=== PATIENT | male | born 1945 | race Caucasian/White ===

== ENCOUNTER 2021-09-11 14:07 | Inpatient (IN) | payer OTHER ==
[2021-09-11] MEDS ORDERED: METOPROLOL TARTRATE 5 MG/5 ML VIAL IVPUSH ONE ×3 (15:21→16:12)
[2021-09-11] MEDS ORDERED: METOPROLOL TARTRATE 5 MG/5 ML VIAL ONE ×3 (15:22→15:53)
[2021-09-11 15:27] LABS: BASO % 0.5 % (0-2.0); EOS % 0.9 % (0-4.5); HEMATOCRIT 54.7 % (35.4-49); HEMOGLOBIN 18.4 GM/dL (11.7-16.9); LYMPH % 14.3 % (8-40); MCH 34.5 pg (25.7-33.7); MCHC 33.7 g/dl (32.0-35.9); MEAN CELL VOLUME 102.3 fl (80-96); MEAN PLT VOLUME 8.6 fl (7.5-11.1); MONO % 8.1 % (3.8-10.2); NEUT % 76.2 % (42.8-82.8); PLATELET COUNT 253 10^3/uL (134-434); RBC 5.35 M/mm3 (4.00-5.60); RDW 13.9 % (11.9-15.9); WHITE BLOOD COUNT 10.2 K/mm3 (4.0-10.0)
[2021-09-11 15:36] LABS: INR 1.06 (0.83-1.09); PROTHROMBIN TIME (PATIENT) 12.2 SEC (9.7-13.0)
[2021-09-11 15:39] LABS: ACTIVATED PTT 31.9 SECONDS (25.2-36.5)
[2021-09-11 15:58] LABS: BLOOD UREA NITROGEN 29.2 mg/dL (7-18); CALCIUM 10.2 mg/dL (8.5-10.1)
[2021-09-11 15:59] LABS: ALBUMIN 4.9 g/dl (3.4-5.0); MAGNESIUM 2.3 mg/dL (1.8-2.4)
[2021-09-11 16:02] LABS: CREATININE 1.8 mg/dL (0.55-1.3)
[2021-09-11 16:03] LABS: BILIRUBIN,TOTAL 0.8 mg/dL (0.2-1); TOT PROT 8.6 g/dl (6.4-8.2)
[2021-09-11] MEDS ORDERED: dilTIAZem HCL 50 MG/10 ML - 10 ML VIAL IVPUSH ONE ×3 (16:51→17:31)
[2021-09-11] MEDS ORDERED: SODIUM CHLORIDE 0.9% 500 ML INFUS.BAG IV ONE (16:52)
[2021-09-11] MEDS ORDERED: dilTIAZem HCL 125 MG/25 ML - 25 ML VIAL ONE ×2 (16:58→17:32)
[2021-09-11] MEDS ORDERED: ACETAMINOPHEN 325 MG TABLET (FP) PO PRN (18:38)
[2021-09-11] MEDS: dilTIAZem HCL 30 MG TABLET PO SCH (20:23)
[2021-09-11] MEDS: APIXABAN 5 MG TABLET PO SCH ×2 (20:24→22:00)
[2021-09-11] MEDS ORDERED: APIXABAN 5 MG TABLET ONE (20:25)
[2021-09-11] MEDS ORDERED: dilTIAZem HCL 30 MG TABLET ONE (20:25)
[2021-09-11] MEDS: MUPIROCIN 2% TOPICAL OINTMENT FOR DECOLONIZATION NS SCH (23:00)
[2021-09-12] MEDS: dilTIAZem HCL 30 MG TABLET PO SCH ×2 (00:48→06:44)
[2021-09-12] MEDS: CHLORHEXIDINE GLUCONATE 4% CLEANSER FOR DECOLONIZATION TP SCH ×2 (00:48→21:20)
[2021-09-12] MEDS ORDERED: ESMOLOL 2500 MG/250 ML 2,500,000 MCG/250 ML INFUS.BAG IVPB SCH ×2 (02:15)
[2021-09-12] MEDS ORDERED: SODIUM CHLORIDE 1,000 ML IV STA (03:31)
[2021-09-12] MEDS ORDERED: dilTIAZem HCL 50 MG/10 ML - 10 ML VIAL ONE ×2 (04:47→04:52)
[2021-09-12] MEDS: INSULIN SLIDING SCALE (NOVOLOG) 1 VIAL SQ SCH ×4 (06:44→21:20)
[2021-09-12 08:08] LABS: BASO % 0.6 % (0-2.0); EOS % 0.9 % (0-4.5); HEMATOCRIT 49.5 % (35.4-49); HEMOGLOBIN 16.4 GM/dL (11.7-16.9); LYMPH % 13.5 % (8-40); MCH 34.3 pg (25.7-33.7); MEAN CELL VOLUME 103.8 fl (80-96); MEAN PLT VOLUME 9.2 fl (7.5-11.1); MONO % 7.3 % (3.8-10.2); NEUT % 77.7 % (42.8-82.8); PLATELET COUNT 226 10^3/uL (134-434); RBC 4.77 M/mm3 (4.00-5.60); RDW 13.6 % (11.9-15.9); WHITE BLOOD COUNT 12.4 K/mm3 (4.0-10.0)
[2021-09-12] MEDS ORDERED: AMIODARONE HCL INJECTION 150 MG in DEXTROSE 5%-WATER - 100 ML IVPB ONE (08:25)
[2021-09-12 08:38] LABS: CALCIUM 8.9 mg/dL (8.5-10.1)
[2021-09-12 08:39] LABS: BLOOD UREA NITROGEN 25.6 mg/dL (7-18)
[2021-09-12 08:42] LABS: CREATININE 1.5 mg/dL (0.55-1.3); PHOSPHOROUS 2.7 mg/dL (2.5-4.9)
[2021-09-12 08:43] LABS: BILIRUBIN,TOTAL 0.9 mg/dL (0.2-1)
[2021-09-12 08:45] LABS: ALBUMIN 3.7 g/dl (3.4-5.0)
[2021-09-12] MEDS ORDERED: AMIODARONE IN DEXTROSE,ISO-OSM 150 MG/100 ML BAG IVPB ONE (08:45)
[2021-09-12] MEDS ORDERED: AMIODARONE IN DEXTROSE,ISO-OSM 360 MG/200 ML BAG IV SCH ×2 (08:45→14:45)
[2021-09-12] MEDS: ASPIRIN 81 MG CHEWABLE TABLETS PO SCH (09:24)
[2021-09-12] MEDS: APIXABAN 5 MG TABLET PO SCH ×2 (09:24→21:19)
[2021-09-12] MEDS: MUPIROCIN 2% TOPICAL OINTMENT FOR DECOLONIZATION NS SCH ×2 (09:27→21:19)
[2021-09-12 10:07] LABS: EPI CELLS 3 /uL (0-25.1); HYALINE CASTS 0 /uL (0-3.1); URINE APPEARANCE CLEAR; URINE BACTERIA 6 /uL (0-1359); URINE BILIRUBIN NEGATIVE (NEGATIVE); URINE COLOR YELLOW; URINE GLUCOSE (UA) NEGATIVE (NEGATIVE); URINE KETONE 1+ (NEGATIVE); URINE LEUK ESTERASE NEGATIVE (NEGATIVE); URINE NITRITE NEGATIVE (NEGATIVE); URINE PROTEIN 1+ (NEGATIVE); URINE RBC 3 /uL (0-23.9); URINE UROBILINOGEN 0.2 mg/dL (0.2-1.0); URINE WBC 2 /uL (0-25.8)
[2021-09-12] MEDS ORDERED: METOPROLOL TARTRATE 5 MG/5 ML VIAL IVPUSH PRN ×6 (12:55→21:20)
[2021-09-12] MEDS ORDERED: metoPROLOL SUCCINATE 25 MG TAB.SR.24H (FP) PO SCH ×2 (13:00→13:15)
[2021-09-12] MEDS: dilTIAZem HCL 60 MG TABLET PO SCH ×3 (13:34→23:31)
[2021-09-12] MEDS ORDERED: METOPROLOL TARTRATE 5 MG/5 ML VIAL IVPUSH ONE (15:23)
[2021-09-12] MEDS ORDERED: dilTIAZem HCL 30 MG TABLET PO SCH ×2 (18:50)
[2021-09-12] MEDS: ATORVASTATIN CA 10 MG TABLET (FP) PO SCH (21:19)
[2021-09-13] MEDS: dilTIAZem HCL 60 MG TABLET PO SCH (06:14)
[2021-09-13] MEDS: INSULIN SLIDING SCALE (NOVOLOG) 1 VIAL SQ SCH ×4 (06:14→21:46)
[2021-09-13 06:54] LABS: BASO % 0.7 % (0-2.0); EOS % 1.1 % (0-4.5); HEMOGLOBIN 15.9 GM/dL (11.7-16.9); LYMPH % 18.4 % (8-40); MCH 34.1 pg (25.7-33.7); MEAN CELL VOLUME 103.3 fl (80-96); MEAN PLT VOLUME 8.9 fl (7.5-11.1); MONO % 8.1 % (3.8-10.2); NEUT % 71.7 % (42.8-82.8); PLATELET COUNT 185 10^3/uL (134-434); RBC 4.65 M/mm3 (4.00-5.60); RDW 13.7 % (11.9-15.9); WHITE BLOOD COUNT 10.9 K/mm3 (4.0-10.0)
[2021-09-13 07:51] LABS: CALCIUM 8.6 mg/dL (8.5-10.1)
[2021-09-13 07:52] LABS: ALBUMIN 3.6 g/dl (3.4-5.0); BLOOD UREA NITROGEN 27.1 mg/dL (7-18); MAGNESIUM 2.2 mg/dL (1.8-2.4)
[2021-09-13 07:55] LABS: CREATININE 1.3 mg/dL (0.55-1.3); PHOSPHOROUS 2.8 mg/dL (2.5-4.9)
[2021-09-13 07:56] LABS: TOT PROT 6.8 g/dl (6.4-8.2)
[2021-09-13 07:57] LABS: BILIRUBIN,TOTAL 0.8 mg/dL (0.2-1)
[2021-09-13] MEDS: APIXABAN 5 MG TABLET PO SCH ×2 (09:13→21:42)
[2021-09-13] MEDS: ASPIRIN 81 MG CHEWABLE TABLETS PO SCH (09:13)
[2021-09-13] MEDS: MUPIROCIN 2% TOPICAL OINTMENT FOR DECOLONIZATION NS SCH ×2 (09:14→21:41)
[2021-09-13] MEDS ORDERED: dilTIAZem HCL 125 MG/25 ML - 25 ML VIAL ONE (11:05)
[2021-09-13] MEDS ORDERED: dilTIAZem HCL 50 MG/10 ML - 10 ML VIAL IVPUSH ONE ×2 (11:25→11:27)
[2021-09-13 13:20] VITALS: BMI 32.7
[2021-09-13] MEDS ORDERED: DIGOXIN 0.5 MG/2 ML AMPUL IVPUSH ONE (20:38)
[2021-09-13] MEDS: CHLORHEXIDINE GLUCONATE 4% CLEANSER FOR DECOLONIZATION TP SCH (21:42)
[2021-09-13] MEDS: ATORVASTATIN CA 10 MG TABLET (FP) PO SCH (21:42)
[2021-09-14] MEDS: INSULIN SLIDING SCALE (NOVOLOG) 1 VIAL SQ SCH ×4 (06:14→21:04)
[2021-09-14 08:14] LABS: BASO % 0.5 % (0-2.0); EOS % 1.1 % (0-4.5); HEMATOCRIT 52.4 % (35.4-49); HEMOGLOBIN 17.5 GM/dL (11.7-16.9); LYMPH % 17.9 % (8-40); MCH 34.3 pg (25.7-33.7); MCHC 33.4 g/dl (32.0-35.9); MEAN CELL VOLUME 102.7 fl (80-96); MEAN PLT VOLUME 8.9 fl (7.5-11.1); NEUT % 74.5 % (42.8-82.8); PLATELET COUNT 238 10^3/uL (134-434); WHITE BLOOD COUNT 12.4 K/mm3 (4.0-10.0)
[2021-09-14 08:27] LABS: ALBUMIN 3.7 g/dl (3.4-5.0); BLOOD UREA NITROGEN 27.6 mg/dL (7-18); MAGNESIUM 2.1 mg/dL (1.8-2.4)
[2021-09-14 08:30] LABS: CREATININE 1.5 mg/dL (0.55-1.3); PHOSPHOROUS 3.1 mg/dL (2.5-4.9)
[2021-09-14] MEDS: ASPIRIN 81 MG CHEWABLE TABLETS PO SCH (09:43)
[2021-09-14] MEDS: APIXABAN 5 MG TABLET PO SCH ×2 (09:43→21:03)
[2021-09-14] MEDS: MUPIROCIN 2% TOPICAL OINTMENT FOR DECOLONIZATION NS SCH ×2 (09:44→21:03)
[2021-09-14] MEDS: ATORVASTATIN CA 10 MG TABLET (FP) PO SCH (21:03)
[2021-09-14] MEDS: CHLORHEXIDINE GLUCONATE 4% CLEANSER FOR DECOLONIZATION TP SCH (21:04)
[2021-09-15] MEDS: INSULIN SLIDING SCALE (NOVOLOG) 1 VIAL SQ SCH ×3 (06:22→21:47)
[2021-09-15 07:01] LABS: HEMATOCRIT 54.1 % (35.4-49); HEMOGLOBIN 18.1 GM/dL (11.7-16.9); MCH 34.1 pg (25.7-33.7); MCHC 33.5 g/dl (32.0-35.9); MEAN CELL VOLUME 101.8 fl (80-96); MEAN PLT VOLUME 8.7 fl (7.5-11.1); PLATELET COUNT 243 10^3/uL (134-434); RBC 5.31 M/mm3 (4.00-5.60); RDW 13.7 % (11.9-15.9)
[2021-09-15 07:22] LABS: BLOOD UREA NITROGEN 21.2 mg/dL (7-18)
[2021-09-15 07:24] LABS: INR 1.38 (0.83-1.09); PROTHROMBIN TIME (PATIENT) 15.9 SEC (9.7-13.0)
[2021-09-15 07:25] LABS: CREATININE 1.3 mg/dL (0.55-1.3); PHOSPHOROUS 2.7 mg/dL (2.5-4.9)
[2021-09-15] MEDS: ASPIRIN 81 MG CHEWABLE TABLETS PO SCH (09:59)
[2021-09-15] MEDS: MUPIROCIN 2% TOPICAL OINTMENT FOR DECOLONIZATION NS SCH ×2 (10:00→21:47)
[2021-09-15] MEDS: APIXABAN 5 MG TABLET PO SCH ×2 (10:00→21:47)
[2021-09-15] MEDS ORDERED: LIDOCAINE VISCOUS 2% ORAL/TOP 15 ML UNIT-DOSE CUP ONE (15:39)
[2021-09-15] MEDS ORDERED: LIDOCAINE VISCOUS 2% ORAL/TOP 15 ML UNIT-DOSE CUP PO ONE ×2 (15:40→15:55)
[2021-09-15] MEDS ORDERED: LISINOPRIL 20 MG TABLET PO ONE (18:20)
[2021-09-15] MEDS: QUINAPRIL HCL 20 MG TABLET PO SCH (20:00)
[2021-09-15] MEDS: ATORVASTATIN CA 10 MG TABLET (FP) PO SCH (21:47)
[2021-09-15] MEDS: CHLORHEXIDINE GLUCONATE 4% CLEANSER FOR DECOLONIZATION TP SCH (21:48)
[2021-09-16] MEDS: QUINAPRIL HCL 20 MG TABLET PO SCH ×2 (00:54→10:22)
[2021-09-16] MEDS: INSULIN SLIDING SCALE (NOVOLOG) 1 VIAL SQ SCH ×4 (06:29→21:34)
[2021-09-16 07:56] LABS: BASO % 0.7 % (0-2.0); EOS % 1.1 % (0-4.5); HEMATOCRIT 47.5 % (35.4-49); HEMOGLOBIN 15.9 GM/dL (11.7-16.9); LYMPH % 18.2 % (8-40); MCH 34.2 pg (25.7-33.7); MCHC 33.4 g/dl (32.0-35.9); MEAN CELL VOLUME 102.3 fl (80-96); MEAN PLT VOLUME 9.3 fl (7.5-11.1); MONO % 6.6 % (3.8-10.2); NEUT % 73.4 % (42.8-82.8); PLATELET COUNT 221 10^3/uL (134-434); RBC 4.64 M/mm3 (4.00-5.60); RDW 13.2 % (11.9-15.9)
[2021-09-16 08:19] LABS: ALBUMIN 3.4 g/dl (3.4-5.0); BLOOD UREA NITROGEN 24.2 mg/dL (7-18); CALCIUM 8.6 mg/dL (8.5-10.1)
[2021-09-16 08:23] LABS: CREATININE 1.3 mg/dL (0.55-1.3); PHOSPHOROUS 3.2 mg/dL (2.5-4.9)
[2021-09-16 08:24] LABS: BILIRUBIN,TOTAL 1.2 mg/dL (0.2-1)
[2021-09-16 08:25] LABS: TOT PROT 6.5 g/dl (6.4-8.2)
[2021-09-16] MEDS: MUPIROCIN 2% TOPICAL OINTMENT FOR DECOLONIZATION NS SCH (10:21)
[2021-09-16] MEDS: ASPIRIN 81 MG CHEWABLE TABLETS PO SCH (10:21)
[2021-09-16] MEDS: APIXABAN 5 MG TABLET PO SCH ×2 (10:21→21:34)
[2021-09-16] MEDS: ATORVASTATIN CA 10 MG TABLET (FP) PO SCH (21:34)
[2021-09-16] MEDS: CHLORHEXIDINE GLUCONATE 4% CLEANSER FOR DECOLONIZATION TP SCH (21:34)
[2021-09-16] MEDS ORDERED: METOPROLOL TARTRATE 5 MG/5 ML VIAL IVPUSH PRN (23:21)
[2021-09-17] MEDS: MELATONIN 5 MG TABLETS PO PRN ×2 (01:29→21:32)
[2021-09-17] MEDS: ACETAMINOPHEN 325 MG TABLET (FP) PO PRN (01:29)
[2021-09-17] MEDS: INSULIN SLIDING SCALE (NOVOLOG) 1 VIAL SQ SCH ×4 (06:03→21:33)
[2021-09-17 08:19] LABS: BASO % 0.5 % (0-2.0); EOS % 0.5 % (0-4.5); HEMATOCRIT 49.8 % (35.4-49); HEMOGLOBIN 16.8 GM/dL (11.7-16.9); MCH 34.7 pg (25.7-33.7); MCHC 33.7 g/dl (32.0-35.9); MEAN CELL VOLUME 102.9 fl (80-96); MEAN PLT VOLUME 9.6 fl (7.5-11.1); MONO % 6.9 % (3.8-10.2); NEUT % 83.1 % (42.8-82.8); PLATELET COUNT 233 10^3/uL (134-434); RBC 4.84 M/mm3 (4.00-5.60); RDW 13.2 % (11.9-15.9); WHITE BLOOD COUNT 14.6 K/mm3 (4.0-10.0)
[2021-09-17] MEDS: APIXABAN 5 MG TABLET PO SCH ×2 (09:34→21:26)
[2021-09-17] MEDS ORDERED: ASPIRIN 81 MG CHEWABLE TABLETS PO SCH (10:00)
[2021-09-17 10:03] LABS: BLOOD UREA NITROGEN 18.2 mg/dL (7-18)
[2021-09-17 10:04] LABS: CREATININE 1.2 mg/dL (0.55-1.3)
[2021-09-17 10:20] LABS: CALCIUM 9.9 mg/dL (8.5-10.1)
[2021-09-17] MEDS: QUINAPRIL HCL 20 MG TABLET PO SCH (11:59)
[2021-09-17] MEDS ORDERED: ACETAMINOPHEN 325 MG TABLET (FP) PO PRN (14:37)
[2021-09-17] MEDS: COLCHICINE 0.6 MG TAB PO SCH ×2 (16:00→21:27)
[2021-09-17] MEDS ORDERED: DEXTROSE 50%-WATER - 25 GM/50 ML VIAL IVPUSH ONE (16:42)
[2021-09-17] MEDS ORDERED: CALCIUM GLUCONATE 10% - 1,000 MG/10 ML VIAL IVPB ONE (16:42)
[2021-09-17] MEDS ORDERED: INSULIN REGULAR HUMAN 100 UNITS/ML *VIAL IVPUSH ONE (16:42)
[2021-09-17] MEDS ORDERED: QUINAPRIL HCL 20 MG TABLET PO ONE (17:19)
[2021-09-17] MEDS ORDERED: CALCIUM GLUCONATE IN NACL 1 GM/50 ML BAG IVPB ONE ×2 (17:30→19:30)
[2021-09-17] MEDS ORDERED: DEXTROSE 50%-WATER 25 GM/50 ML DISP.SYRIN IVPUSH ONE (18:30)
[2021-09-17] MEDS: HYDROCHLOROTHIAZIDE 25 MG TABLET (FP) PO SCH (18:33)
[2021-09-17] MEDS: ATORVASTATIN CA 10 MG TABLET (FP) PO SCH (21:26)
[2021-09-18] MEDS: INSULIN SLIDING SCALE (NOVOLOG) 1 VIAL SQ SCH ×4 (06:22→21:44)
[2021-09-18 08:48] LABS: BASO % 0.3 % (0-2.0); EOS % 0.1 % (0-4.5); HEMATOCRIT 51.7 % (35.4-49); HEMOGLOBIN 17.6 GM/dL (11.7-16.9); LYMPH % 8.4 % (8-40); MCH 34.3 pg (25.7-33.7); MEAN CELL VOLUME 100.7 fl (80-96); MEAN PLT VOLUME 9.7 fl (7.5-11.1); MONO % 6.6 % (3.8-10.2); NEUT % 84.6 % (42.8-82.8); PLATELET COUNT 243 10^3/uL (134-434); RBC 5.13 M/mm3 (4.00-5.60); RDW 13.2 % (11.9-15.9); WHITE BLOOD COUNT 18.1 K/mm3 (4.0-10.0)
[2021-09-18 09:08] LABS: ALBUMIN 3.4 g/dl (3.4-5.0); CALCIUM 9.2 mg/dL (8.5-10.1)
[2021-09-18 09:10] LABS: MAGNESIUM 1.9 mg/dL (1.8-2.4)
[2021-09-18 09:11] LABS: CREATININE 1.2 mg/dL (0.55-1.3); PHOSPHOROUS 3.2 mg/dL (2.5-4.9)
[2021-09-18 09:12] LABS: BILIRUBIN,TOTAL 1.9 mg/dL (0.2-1); TOT PROT 7.1 g/dl (6.4-8.2)
[2021-09-18] MEDS ORDERED: QUINAPRIL HCL 40 MG TABLET PO SCH (10:00)
[2021-09-18] MEDS: COLCHICINE 0.6 MG TAB PO SCH ×2 (10:16→21:33)
[2021-09-18] MEDS: APIXABAN 5 MG TABLET PO SCH ×2 (10:16→21:33)
[2021-09-18] MEDS: HYDROCHLOROTHIAZIDE 25 MG TABLET (FP) PO SCH (10:16)
[2021-09-18] MEDS: ACETAMINOPHEN 325 MG TABLET (FP) PO PRN (10:18)
[2021-09-18] MEDS ORDERED: FUROSEMIDE 40 MG/4 ML INJECTABLE VIAL IVPUSH ONE (12:00)
[2021-09-18] MEDS: CEFAZOLIN 1 GM in DEXTROSE 5%-WATER - 1 GM/50 ML IVPB IVPB SCH (18:36)
[2021-09-18] MEDS: ATORVASTATIN CA 10 MG TABLET (FP) PO SCH (21:33)
[2021-09-19] MEDS: CEFAZOLIN 1 GM in DEXTROSE 5%-WATER - 1 GM/50 ML IVPB IVPB SCH ×3 (01:07→18:56)
[2021-09-19] MEDS: METOPROLOL TARTRATE 5 MG/5 ML VIAL IVPUSH PRN ×2 (02:42→07:12)
[2021-09-19] MEDS ORDERED: dilTIAZem HCL 50 MG/10 ML - 10 ML VIAL IVPUSH ONE (03:00)
[2021-09-19] MEDS ORDERED: AMIODARONE IN DEXTROSE,ISO-OSM 360 MG/200 ML BAG IV SCH ×2 (06:30→22:57)
[2021-09-19] MEDS: INSULIN SLIDING SCALE (NOVOLOG) 1 VIAL SQ SCH ×4 (06:47→21:20)
[2021-09-19 07:33] LABS: BASO % 0.5 % (0-2.0); EOS % 0.3 % (0-4.5); HEMATOCRIT 54.1 % (35.4-49); HEMOGLOBIN 18.4 GM/dL (11.7-16.9); LYMPH % 8.7 % (8-40); MCH 34.6 pg (25.7-33.7); MCHC 33.9 g/dl (32.0-35.9); MEAN CELL VOLUME 101.8 fl (80-96); MEAN PLT VOLUME 9.7 fl (7.5-11.1); MONO % 7.3 % (3.8-10.2); NEUT % 83.2 % (42.8-82.8); PLATELET COUNT 197 10^3/uL (134-434); RBC 5.32 M/mm3 (4.00-5.60); RDW 13.2 % (11.9-15.9); WHITE BLOOD COUNT 17.5 K/mm3 (4.0-10.0)
[2021-09-19] MEDS ORDERED: MUPIROCIN 2% TOPICAL OINTMENT FOR DECOLONIZATION NS SCH (10:00)
[2021-09-19] MEDS: APIXABAN 5 MG TABLET PO SCH ×2 (11:00→21:20)
[2021-09-19] MEDS: HYDROCHLOROTHIAZIDE 25 MG TABLET (FP) PO SCH (11:00)
[2021-09-19] MEDS: dilTIAZem HCL 60 MG TABLET PO SCH ×2 (15:42→21:19)
[2021-09-19] MEDS: MUPIROCIN 2% TOPICAL OINTMENT FOR DECOLONIZATION NS SCH ×2 (15:43→21:20)
[2021-09-19] MEDS: PANTOPRAZOLE 40 MG TABLET PO SCH (17:45)
[2021-09-19] MEDS: ACETAMINOPHEN 325 MG TABLET (FP) PO PRN (21:17)
[2021-09-19] MEDS: MELATONIN 5 MG TABLETS PO PRN (21:18)
[2021-09-19] MEDS: AMIODARONE HCL 200 MG TABLET PO SCH (21:19)
[2021-09-19] MEDS: CHLORHEXIDINE GLUCONATE 4% CLEANSER FOR DECOLONIZATION TP SCH (21:20)
[2021-09-19] MEDS: ATORVASTATIN CA 10 MG TABLET (FP) PO SCH (21:20)
[2021-09-19] MEDS ORDERED: METOPROLOL TARTRATE 5 MG/5 ML VIAL IVPUSH PRN ×2 (22:57)
[2021-09-20] MEDS: dilTIAZem HCL 60 MG TABLET PO SCH ×5 (02:51→23:25)
[2021-09-20] MEDS: CEFAZOLIN 1 GM in DEXTROSE 5%-WATER - 1 GM/50 ML IVPB IVPB SCH ×3 (02:52→17:13)
[2021-09-20] MEDS ORDERED: AMIODARONE HCL 200 MG TABLET PO SCH (03:00)
[2021-09-20] MEDS: INSULIN SLIDING SCALE (NOVOLOG) 1 VIAL SQ SCH ×4 (06:54→21:49)
[2021-09-20] MEDS: AMIODARONE HCL 200 MG TABLET PO SCH ×3 (06:55→21:45)
[2021-09-20 08:02] LABS: BASO % 1.2 % (0-2.0); EOS % 1.5 % (0-4.5); HEMOGLOBIN 17.7 GM/dL (11.7-16.9); LYMPH % 15.9 % (8-40); MCH 34.1 pg (25.7-33.7); MEAN CELL VOLUME 100.3 fl (80-96); MEAN PLT VOLUME 9.9 fl (7.5-11.1); MONO % 5.6 % (3.8-10.2); NEUT % 75.8 % (42.8-82.8); PLATELET COUNT 277 10^3/uL (134-434); RBC 5.19 M/mm3 (4.00-5.60); RDW 13.4 % (11.9-15.9); WHITE BLOOD COUNT 14.6 K/mm3 (4.0-10.0)
[2021-09-20 08:24] LABS: CALCIUM 8.7 mg/dL (8.5-10.1)
[2021-09-20 08:25] LABS: MAGNESIUM 2.1 mg/dL (1.8-2.4)
[2021-09-20 08:28] LABS: CREATININE 1.6 mg/dL (0.55-1.3); PHOSPHOROUS 4.3 mg/dL (2.5-4.9)
[2021-09-20 08:30] LABS: BILIRUBIN,TOTAL 0.8 mg/dL (0.2-1); TOT PROT 6.7 g/dl (6.4-8.2)
[2021-09-20 08:48] LABS: BLOOD UREA NITROGEN 43.4 mg/dL (7-18)
[2021-09-20] MEDS: APIXABAN 5 MG TABLET PO SCH ×2 (09:14→21:49)
[2021-09-20] MEDS: PANTOPRAZOLE 40 MG TABLET PO SCH (09:14)
[2021-09-20] MEDS: MUPIROCIN 2% TOPICAL OINTMENT FOR DECOLONIZATION NS SCH ×2 (10:40→21:45)
[2021-09-20] MEDS: MELATONIN 5 MG TABLETS PO PRN (21:45)
[2021-09-20] MEDS: ATORVASTATIN CA 10 MG TABLET (FP) PO SCH (21:49)
[2021-09-20] MEDS: CHLORHEXIDINE GLUCONATE 4% CLEANSER FOR DECOLONIZATION TP SCH (21:49)
[2021-09-20] MEDS: ACETAMINOPHEN 325 MG TABLET (FP) PO PRN (21:50)
[2021-09-21] MEDS: CEFAZOLIN 1 GM in DEXTROSE 5%-WATER - 1 GM/50 ML IVPB IVPB SCH ×2 (01:13→10:43)
[2021-09-21] MEDS: ACETAMINOPHEN 325 MG TABLET (FP) PO PRN ×2 (05:17→22:05)
[2021-09-21] MEDS: dilTIAZem HCL 60 MG TABLET PO SCH ×4 (05:18→23:45)
[2021-09-21] MEDS: AMIODARONE HCL 200 MG TABLET PO SCH ×3 (05:18→21:52)
[2021-09-21] MEDS: INSULIN SLIDING SCALE (NOVOLOG) 1 VIAL SQ SCH ×4 (06:02→21:55)
[2021-09-21 07:44] LABS: BASO % 0.6 % (0-2.0); EOS % 1.6 % (0-4.5); HEMATOCRIT 51.5 % (35.4-49); HEMOGLOBIN 17.1 GM/dL (11.7-16.9); LYMPH % 15.8 % (8-40); MCH 34.1 pg (25.7-33.7); MCHC 33.3 g/dl (32.0-35.9); MEAN CELL VOLUME 102.5 fl (80-96); MEAN PLT VOLUME 9.7 fl (7.5-11.1); MONO % 7.5 % (3.8-10.2); NEUT % 74.5 % (42.8-82.8); PLATELET COUNT 273 10^3/uL (134-434); RBC 5.02 M/mm3 (4.00-5.60); RDW 13.3 % (11.9-15.9); WHITE BLOOD COUNT 12.8 K/mm3 (4.0-10.0)
[2021-09-21 08:06] LABS: BLOOD UREA NITROGEN 45.8 mg/dL (7-18); CALCIUM 8.7 mg/dL (8.5-10.1)
[2021-09-21 08:07] LABS: ALBUMIN 3.1 g/dl (3.4-5.0)
[2021-09-21 08:09] LABS: CREATININE 1.7 mg/dL (0.55-1.3); PHOSPHOROUS 3.3 mg/dL (2.5-4.9)
[2021-09-21 08:11] LABS: BILIRUBIN,TOTAL 1.1 mg/dL (0.2-1); TOT PROT 6.9 g/dl (6.4-8.2)
[2021-09-21] MEDS: MUPIROCIN 2% TOPICAL OINTMENT FOR DECOLONIZATION NS SCH ×2 (10:44→21:52)
[2021-09-21] MEDS: PANTOPRAZOLE 40 MG TABLET PO SCH (10:44)
[2021-09-21] MEDS: APIXABAN 5 MG TABLET PO SCH ×2 (10:44→21:53)
[2021-09-21] MEDS: CEFAZOLIN SODIUM 2 GM in DEXTROSE 5%-WATER 100 ML IVPB SCH ×2 (10:48→17:23)
[2021-09-21] MEDS: ATORVASTATIN CA 10 MG TABLET (FP) PO SCH (21:53)
[2021-09-21] MEDS: CHLORHEXIDINE GLUCONATE 4% CLEANSER FOR DECOLONIZATION TP SCH (21:53)
[2021-09-21] MEDS: MELATONIN 5 MG TABLETS PO PRN (22:05)
[2021-09-22] MEDS: CEFAZOLIN SODIUM 2 GM in DEXTROSE 5%-WATER 100 ML IVPB SCH ×3 (02:48→18:26)
[2021-09-22] MEDS: AMIODARONE HCL 200 MG TABLET PO SCH ×3 (05:17→21:10)
[2021-09-22] MEDS: dilTIAZem HCL 60 MG TABLET PO SCH ×4 (05:17→23:35)
[2021-09-22] MEDS: INSULIN SLIDING SCALE (NOVOLOG) 1 VIAL SQ SCH ×4 (06:01→21:20)
[2021-09-22 07:57] LABS: PHOSPHOROUS 3.1 mg/dL (2.5-4.9)
[2021-09-22 07:59] LABS: BILIRUBIN,TOTAL 0.7 mg/dL (0.2-1); BLOOD UREA NITROGEN 48.6 mg/dL (7-18); TOT PROT 7.3 g/dl (6.4-8.2)
[2021-09-22 08:01] LABS: CALCIUM 8.7 mg/dL (8.5-10.1); MAGNESIUM 2.3 mg/dL (1.8-2.4)
[2021-09-22 08:02] LABS: ALBUMIN 3.3 g/dl (3.4-5.0); BASO % 0.8 % (0-2.0); CREATININE 1.8 mg/dL (0.55-1.3); EOS % 1.7 % (0-4.5); HEMATOCRIT 52.6 % (35.4-49); HEMOGLOBIN 17.4 GM/dL (11.7-16.9); LYMPH % 23.8 % (8-40); MCHC 33.1 g/dl (32.0-35.9); MEAN CELL VOLUME 102.6 fl (80-96); MEAN PLT VOLUME 9.6 fl (7.5-11.1); MONO % 6.9 % (3.8-10.2); NEUT % 66.8 % (42.8-82.8); PLATELET COUNT 314 10^3/uL (134-434); RBC 5.13 M/mm3 (4.00-5.60); RDW 12.9 % (11.9-15.9); WHITE BLOOD COUNT 11.8 K/mm3 (4.0-10.0)
[2021-09-22] MEDS: MUPIROCIN 2% TOPICAL OINTMENT FOR DECOLONIZATION NS SCH ×2 (09:40→21:10)
[2021-09-22] MEDS: PANTOPRAZOLE 40 MG TABLET PO SCH (09:40)
[2021-09-22] MEDS: APIXABAN 5 MG TABLET PO SCH ×2 (09:40→21:11)
[2021-09-22] MEDS: CHLORHEXIDINE GLUCONATE 4% CLEANSER FOR DECOLONIZATION TP SCH (21:11)
[2021-09-22] MEDS: ATORVASTATIN CA 10 MG TABLET (FP) PO SCH (21:11)
[2021-09-22] MEDS: ACETAMINOPHEN 325 MG TABLET (FP) PO PRN (21:16)
[2021-09-22] MEDS: MELATONIN 5 MG TABLETS PO PRN (21:16)
[2021-09-23] MEDS: CEFAZOLIN SODIUM 2 GM in DEXTROSE 5%-WATER 100 ML IVPB SCH ×3 (01:03→17:16)
[2021-09-23] MEDS: AMIODARONE HCL 200 MG TABLET PO SCH ×3 (06:20→21:45)
[2021-09-23] MEDS: dilTIAZem HCL 60 MG TABLET PO SCH (06:20)
[2021-09-23] MEDS: INSULIN SLIDING SCALE (NOVOLOG) 1 VIAL SQ SCH ×4 (06:27→21:51)
[2021-09-23 07:14] LABS: BASO % 1.1 % (0-2.0); EOS % 1.8 % (0-4.5); HEMOGLOBIN 17.4 GM/dL (11.7-16.9); LYMPH % 23.1 % (8-40); MCH 34.4 pg (25.7-33.7); MCHC 34.1 g/dl (32.0-35.9); MEAN CELL VOLUME 100.9 fl (80-96); MEAN PLT VOLUME 9.5 fl (7.5-11.1); MONO % 6.1 % (3.8-10.2); NEUT % 67.9 % (42.8-82.8); PLATELET COUNT 304 10^3/uL (134-434); RBC 5.06 M/mm3 (4.00-5.60); RDW 13.1 % (11.9-15.9); WHITE BLOOD COUNT 11.3 K/mm3 (4.0-10.0)
[2021-09-23 07:41] LABS: CALCIUM 8.8 mg/dL (8.5-10.1)
[2021-09-23 07:42] LABS: ALBUMIN 3.4 g/dl (3.4-5.0); BLOOD UREA NITROGEN 40.3 mg/dL (7-18); MAGNESIUM 2.1 mg/dL (1.8-2.4)
[2021-09-23 07:45] LABS: CREATININE 1.6 mg/dL (0.55-1.3)
[2021-09-23 07:46] LABS: BILIRUBIN,TOTAL 0.8 mg/dL (0.2-1); TOT PROT 7.4 g/dl (6.4-8.2)
[2021-09-23] MEDS ORDERED: HEPARIN NA (PORCINE) 5,000 UNITS/ML 1ML VIAL IVPUSH PRN ×2 (09:12)
[2021-09-23] MEDS ORDERED: HEPARIN SOD,PORK IN 0.45% NACL 25,000 UNITS/500 ML INFUS.BAG IVPB SCH (09:15)
[2021-09-23] MEDS: MUPIROCIN 2% TOPICAL OINTMENT FOR DECOLONIZATION NS SCH ×2 (10:14→21:43)
[2021-09-23] MEDS: PANTOPRAZOLE 40 MG TABLET PO SCH (10:14)
[2021-09-23] MEDS: ACETAMINOPHEN 325 MG TABLET (FP) PO PRN (10:46)
[2021-09-23] MEDS: APIXABAN 5 MG TABLET PO SCH ×2 (11:13→21:45)
[2021-09-23] MEDS: CHLORHEXIDINE GLUCONATE 4% CLEANSER FOR DECOLONIZATION TP SCH (21:43)
[2021-09-23] MEDS: MELATONIN 5 MG TABLETS PO PRN (21:45)
[2021-09-23] MEDS: ATORVASTATIN CA 10 MG TABLET (FP) PO SCH (21:45)
[2021-09-24] MEDS: CEFAZOLIN SODIUM 2 GM in DEXTROSE 5%-WATER 100 ML IVPB SCH (01:12)
[2021-09-24] MEDS: AMIODARONE HCL 200 MG TABLET PO SCH ×2 (06:22→21:22)
[2021-09-24] MEDS: INSULIN SLIDING SCALE (NOVOLOG) 1 VIAL SQ SCH ×4 (06:22→21:24)
[2021-09-24 08:00] LABS: CALCIUM 8.4 mg/dL (8.5-10.1)
[2021-09-24 08:02] LABS: BLOOD UREA NITROGEN 36.3 mg/dL (7-18); MAGNESIUM 2.1 mg/dL (1.8-2.4)
[2021-09-24 08:04] LABS: CREATININE 1.5 mg/dL (0.55-1.3); PHOSPHOROUS 2.9 mg/dL (2.5-4.9)
[2021-09-24 08:11] LABS: BASO % 0.6 % (0-2.0); EOS % 1.9 % (0-4.5); HEMATOCRIT 50.1 % (35.4-49); LYMPH % 22.4 % (8-40); MCH 34.4 pg (25.7-33.7); MEAN CELL VOLUME 101.1 fl (80-96); MEAN PLT VOLUME 9.8 fl (7.5-11.1); MONO % 7.5 % (3.8-10.2); NEUT % 67.6 % (42.8-82.8); PLATELET COUNT 280 10^3/uL (134-434); RBC 4.95 M/mm3 (4.00-5.60); RDW 13.2 % (11.9-15.9); WHITE BLOOD COUNT 9.9 K/mm3 (4.0-10.0)
[2021-09-24] MEDS: PANTOPRAZOLE 40 MG TABLET PO SCH (09:40)
[2021-09-24] MEDS: CEPHALEXIN MONOHYDRATE 500 MG CAPSULE (UD) PO SCH ×4 (09:41→23:39)
[2021-09-24] MEDS: APIXABAN 5 MG TABLET PO SCH ×2 (09:41→21:22)
[2021-09-24] MEDS: MUPIROCIN 2% TOPICAL OINTMENT FOR DECOLONIZATION NS SCH (09:41)
[2021-09-24] MEDS: QUINAPRIL HCL 5 MG TABLET PO SCH (12:27)
[2021-09-24] MEDS: ATORVASTATIN CA 10 MG TABLET (FP) PO SCH (21:22)
[2021-09-24] MEDS: CHLORHEXIDINE GLUCONATE 4% CLEANSER FOR DECOLONIZATION TP SCH (21:22)
[2021-09-24] MEDS: ACETAMINOPHEN 325 MG TABLET (FP) PO PRN (21:24)
[2021-09-24] MEDS: MELATONIN 5 MG TABLETS PO PRN (21:25)
[2021-09-25] MEDS: CEPHALEXIN MONOHYDRATE 500 MG CAPSULE (UD) PO SCH ×2 (05:23→12:20)
[2021-09-25] MEDS: INSULIN SLIDING SCALE (NOVOLOG) 1 VIAL SQ SCH ×2 (06:03→12:17)
[2021-09-25 08:43] LABS: BLOOD UREA NITROGEN 35.6 mg/dL (7-18)
[2021-09-25 08:45] LABS: CALCIUM 9.1 mg/dL (8.5-10.1)
[2021-09-25 08:46] LABS: CREATININE 1.5 mg/dL (0.55-1.3)
[2021-09-25 09:04] LABS: BASO % 0.9 % (0-2.0); EOS % 1.8 % (0-4.5); HEMATOCRIT 51.8 % (35.4-49); LYMPH % 21.2 % (8-40); MCH 35.2 pg (25.7-33.7); MCHC 34.7 g/dl (32.0-35.9); MEAN CELL VOLUME 101.7 fl (80-96); MEAN PLT VOLUME 9.2 fl (7.5-11.1); MONO % 7.1 % (3.8-10.2); PLATELET COUNT 334 10^3/uL (134-434); RBC 5.09 M/mm3 (4.00-5.60); RDW 13.2 % (11.9-15.9); WHITE BLOOD COUNT 11.2 K/mm3 (4.0-10.0)
[2021-09-25] MEDS: AMIODARONE HCL 200 MG TABLET PO SCH (09:20)
[2021-09-25] MEDS: QUINAPRIL HCL 5 MG TABLET PO SCH (09:20)
[2021-09-25] MEDS: APIXABAN 5 MG TABLET PO SCH (09:21)
[2021-09-25] MEDS: PANTOPRAZOLE 40 MG TABLET PO SCH (09:21)
[2021-09-25 10:33] VITALS: PULSE 114; TEMP 97.6
[2021-09-25 14:43] VITALS: BP 129/103; RESP 22
== END 2021-09-25 14:00 | disposition short-term general hospital (02) | DRG 309 ==
LOC: JER 14:07 → JERBED 18:05 → JICU 23:01 → J4W 09-16 23:48 → JICU 09-19 08:33
PROVIDERS: ADMIT Internal Medicine; ATTEND Internal Medicine Pulmonary Disease
PROC: B246ZZ4 Ultrasonography of Right and Left Heart, Transesophageal (ICD-10-PCS; 2021-09-15)
PROC: 5A2204Z Restoration of Cardiac Rhythm, Single (ICD-10-PCS; principal; 2021-09-15 14:30)
DX: I48.92 Unspecified atrial flutter (principal); L03.116 Cellulitis of left lower limb; N17.9 Acute kidney failure, unspecified; I10 Essential (primary) hypertension; E78.5 Hyperlipidemia, unspecified; E11.9 Type 2 diabetes mellitus without complications; N40.0 Benign prostatic hyperplasia without lower urinary tract symptoms; Z68.32 Body mass index [BMI] 32.0-32.9, adult; E66.01 Morbid (severe) obesity due to excess calories; D72.829 Elevated white blood cell count, unspecified
CPT/HCPCS: 36415; 70450-TC; 71045-TC-FY; 73610-TC-LT-FY; 73630-TC-LT; 80048; 80053; 81003; 82550; 82962; 83036; 83735; 84100; 84439; 84443; 84484; 84550; 85025; 85027; 85610; 85730; 87040; 93005; 93010; 93306-TC; 93312; 93325; 93971-TC; 97116-GP; 97161-GP; 99285-25; C9803-CS; J0282; U0003; U0005